=== PATIENT | male | born 2000 | race Caucasian/White ===

== ENCOUNTER 2018-07-16 19:58 | Inpatient (IN) | payer OTHER ==
[~2018-07-16] VITALS: Ht 177.8 cm; Wt 73.3 kg
[2018-07-16] MEDS ORDERED: ONDANSETRON 2MG/ML, 2ML ONE (20:37)
[2018-07-16 20:55] LABS: MEAN CORPUSCULAR HEMOGLOBIN 29.6 pg (27.5-34.5); MEAN CORPUSCULAR VOLUME 87.1 fL (81-97); MEAN PLATELET VOLUME 7.3 fL (7.4-10.4); PLATELET COUNT 274 x10^3/uL (130-400); RED CELL DISTRIBUTION WIDTH 14.5 % (9.4-14.8)
[2018-07-16] MEDS ORDERED: ONDANSETRON 2MG/ML, 2ML IVPush ONE (21:00)
[2018-07-16] MEDS ORDERED: SODIUM CHLORIDE FLUSH 10ML SYR IVF ONE (21:00)
[2018-07-16 21:04] LABS: ALANINE AMINOTRANSFERASE 376 U/L (12-78); ALBUMIN 3.7 g/dL (3.4-5.0); ANION GAP 7 mmol/L (5-15); CALCIUM 8.9 mg/dL (8.5-10.1); CHLORIDE 106 mmol/L (98-107); CREATININE 1.05 mg/dL (0.7-1.3)
[2018-07-16 21:06] LABS: ALKALINE PHOSPHATASE 399 U/L (45-117); TOTAL PROTEIN 8.3 g/dL (6.4-8.2)
--- NOTE | 2018-07-16 21:23 | NUR ---
PT IN SONO AT THIS TIME.
[2018-07-16 21:30] LABS: MD YES
[2018-07-16 21:44] LABS: BAND#(MANUAL) 0.39 x10^3/uL; BANDS%(MANUAL) 3 % (0-7); LYMPH#(MANUAL) 5.55 x10^3/uL (1-6.1); LYMPHS% (MANUAL) 43 % (22-44); MONOS#(MANUAL) 0.26 x10^3/uL (0.3-2.7); MONOS% (MANUAL) 2 % (2-9); REACTIVE LYMPHS # (MANUAL) 5.03 x10^3/uL (0-0); REACTIVE LYMPHS % (MANUAL) 39 % (0-0); SEG#(MANUAL) 1.68 x10^3/uL (1.8-8); SEGS% (MANUAL) 13 % (42-75)
[2018-07-16 21:45] LABS: <PLATELET ESTIMATE> ADEQUATE; <RBC MORPHOLOGY> NORMAL; SMALL PLATELETS 1+
[2018-07-16 21:50] LABS: CULTURE INDICATED? YES
[2018-07-16 21:51] LABS: MICROSCOPIC INDICATED
--- NOTE | 2018-07-16 22:11 | NUR ---
AND RN IN ROOM FOR RECHECK. PT AGREEABLE TO ADMISSION. POC DISCUSSED. PT DECLINES NEED FOR PAIN MEDS AT THIS TIME. PT DENIES FURTHER NEEDS AT THIS TIME.
--- NOTE | 2018-07-16 22:57 | NUR ---
REPORT TO TRISHA RN FOR ROOM [phone].
[2018-07-16] MEDS ORDERED: DOCUSATE 100 MG CAPSULE PO PRN (23:30)
[2018-07-16] MEDS ORDERED: ONDANSETRON ODT 4 MG PO PRN (23:30)
[2018-07-16] MEDS ORDERED: morphine SULFATE 10 MG/ML, 1ML IVPush PRN (23:30)
[2018-07-16] MEDS ORDERED: PROMETHAZINE 25 MG/ML, 1ML IM PRN (23:30)
[2018-07-16 23:42] LABS: FREE T4 (FREE THYROXINE) 1.21 ng/dL (0.76-1.46); THYROID STIMULATING HORMONE 1.17 mIU/L (0.358-3.740)
[2018-07-16] MEDS: SODIUM CHLORIDE 0.9% 1,000 ML IV SCH (23:42)
[2018-07-16 23:49] LABS: HEMOGLOBIN A1C 5.1 % (4.2-6.3)
[2018-07-16 23:51] VITALS: BP 109/68
[2018-07-17 01:25] VITALS: BP 93/56
[2018-07-17] MEDS: SODIUM CHLORIDE 0.9% 1,000 ML IV SCH ×2 (05:20→15:12)
[2018-07-17 05:42] LABS: MEAN CORPUSCULAR HEMOGLOBIN 29.3 pg (27.5-34.5); MEAN CORPUSCULAR HGB CONC 33.7 g/dL (33.2-36.2); MEAN CORPUSCULAR VOLUME 87.1 fL (81-97); MEAN PLATELET VOLUME 7.8 fL (7.4-10.4); PLATELET COUNT 259 x10^3/uL (130-400); RED BLOOD COUNT 4.82 x10^6/uL (4.38-5.82); RED CELL DISTRIBUTION WIDTH 14.4 % (9.4-14.8)
[2018-07-17 05:46] LABS: ALANINE AMINOTRANSFERASE 360 U/L (12-78); ALBUMIN 3.2 g/dL (3.4-5.0); ANION GAP 8 mmol/L (5-15); CALCIUM 8.7 mg/dL (8.5-10.1); CHLORIDE 108 mmol/L (98-107)
[2018-07-17 05:51] LABS: ALKALINE PHOSPHATASE 370 U/L (45-117); CHOL/HDL RATIO 10.5; CHOLESTEROL, TOTAL 158 mg/dL (140-239); CREATININE 1.02 mg/dL (0.7-1.3); HDL CHOL % 9 % (26-37); HDL CHOLESTEROL (DIRECT) 15 mg/dL (40-60); LDL CHOLESTEROL,CALCULATED 93 mg/dL (54-169); LDL/HDL RATIO 6.2 (0.5-3.0); TRIGLYCERIDES 251 mg/dL (50-200); VLDL CHOLESTEROL 50 mg/dL (0-25)
[2018-07-17 06:13] LABS: MD YES
[2018-07-17 06:17] LABS: BAND#(MANUAL) 0.13 x10^3/uL; BANDS%(MANUAL) 1 % (0-7); EOS#(MANUAL) 0.26 x10^3/uL (0.0-0.8); EOS% (MANUAL) 2 % (1-7); LYMPH#(MANUAL) 7.47 x10^3/uL (1-6.1); LYMPHS% (MANUAL) 57 % (22-44); MONOS#(MANUAL) 0.79 x10^3/uL (0.3-2.7); MONOS% (MANUAL) 6 % (2-9); REACTIVE LYMPHS # (MANUAL) 3.01 x10^3/uL (0-0); REACTIVE LYMPHS % (MANUAL) 23 % (0-0); SEG#(MANUAL) 1.44 x10^3/uL (1.8-8); SEGS% (MANUAL) 11 % (42-75)
[2018-07-17 06:18] LABS: <PLATELET ESTIMATE> ADEQUATE; <PLT MORPHOLOGY> NORMAL PLT MORPH; <RBC MORPHOLOGY> NORMAL
[2018-07-17 08:00] VITALS: BP 111/65
[2018-07-17 13:52] VITALS: BP 108/69
[2018-07-17 20:16] VITALS: BP 119/72
[2018-07-17] MEDS: ONDANSETRON 2MG/ML, 2ML IVPush PRN (21:41)
[2018-07-17] MEDS: OXYcodone IR 5MG TABLET PO PRN ×2 (21:41→22:46)
[2018-07-18 01:48] VITALS: BP 97/56
[2018-07-18 07:40] LABS: ALANINE AMINOTRANSFERASE 387 U/L (12-78); ALBUMIN 3.2 g/dL (3.4-5.0); ANION GAP 6 mmol/L (5-15); CALCIUM 8.7 mg/dL (8.5-10.1); CHLORIDE 109 mmol/L (98-107); CREATININE 0.93 mg/dL (0.7-1.3)
[2018-07-18 07:43] LABS: ALKALINE PHOSPHATASE 429 U/L (45-117); BILIRUBIN,TOTAL 3.5 mg/dL (0.2-1.0); TOTAL PROTEIN 7.1 g/dL (6.4-8.2)
[2018-07-18 07:50] VITALS: BP 142/86
[2018-07-18 07:53] VITALS: BP 99/64
[2018-07-18 13:04] VITALS: BP 109/64
[2018-07-18 17:31] LABS: FREE T4 (FREE THYROXINE) 1.22 ng/dL (0.76-1.46); THYROID STIMULATING HORMONE 0.474 mIU/L (0.358-3.740)
[2018-07-18 19:12] VITALS: BP 101/66
[2018-07-18] MEDS: ONDANSETRON 2MG/ML, 2ML IVPush PRN (19:34)
[2018-07-19 01:54] VITALS: BP 97/57
[2018-07-19 07:52] VITALS: BP 107/60
[2018-07-19 11:18] LABS: MD YES; MEAN CORPUSCULAR HEMOGLOBIN 29.5 pg (27.5-34.5); MEAN CORPUSCULAR HGB CONC 34.1 g/dL (33.2-36.2); MEAN CORPUSCULAR VOLUME 86.5 fL (81-97); MEAN PLATELET VOLUME 7.3 fL (7.4-10.4); PLATELET COUNT 300 x10^3/uL (130-400); RED BLOOD COUNT 5.23 x10^6/uL (4.38-5.82); RED CELL DISTRIBUTION WIDTH 14.7 % (9.4-14.8)
[2018-07-19 11:29] LABS: ALANINE AMINOTRANSFERASE 413 U/L (12-78); ALBUMIN 3.4 g/dL (3.4-5.0); ANION GAP 11 mmol/L (5-15); CHLORIDE 103 mmol/L (98-107); CREATININE 1.05 mg/dL (0.7-1.3)
[2018-07-19 11:31] LABS: ALKALINE PHOSPHATASE 546 U/L (45-117); BILIRUBIN,TOTAL 2.9 mg/dL (0.2-1.0); TOTAL PROTEIN 7.8 g/dL (6.4-8.2)
[2018-07-19 11:38] LABS: <PLATELET ESTIMATE> ADEQUATE; <PLT MORPHOLOGY> NORMAL PLT MORPH; <RBC MORPHOLOGY> NORMAL; BAND#(MANUAL) 0.38 x10^3/uL; BANDS%(MANUAL) 3 % (0-7); EOS#(MANUAL) 0.13 x10^3/uL (0.0-0.8); EOS% (MANUAL) 1 % (1-7); LYMPH#(MANUAL) 4.25 x10^3/uL (1-6.1); LYMPHS% (MANUAL) 34 % (22-44); MONOS#(MANUAL) 1.38 x10^3/uL (0.3-2.7); MONOS% (MANUAL) 11 % (2-9); REACTIVE LYMPHS # (MANUAL) 4.25 x10^3/uL (0-0); REACTIVE LYMPHS % (MANUAL) 34 % (0-0); SEG#(MANUAL) 2.13 x10^3/uL (1.8-8); SEGS% (MANUAL) 17 % (42-75)
[2018-07-19 12:26] VITALS: BP 105/63
[2018-07-19] MEDS ORDERED: PROPOFOL 10 MG/ML, 20ML ONE (13:40)
[2018-07-19] MEDS ORDERED: PROMETHAZINE 25 MG/ML, 1ML IV PRN (14:00)
[2018-07-19] MEDS ORDERED: MORPHINE SULFATE 4 MG/ML, 1ML IVPush PRN (14:00)
[2018-07-19] MEDS ORDERED: ONDANSETRON ODT 8 MG PO PRN (14:00)
[2018-07-19] MEDS ORDERED: hydrALAzine 20 MG/ML, 1ML IV PRN (14:00)
[2018-07-19] MEDS ORDERED: MIDAZOLAM 1 MG/ML, 2ML IV PRN (14:00)
[2018-07-19] MEDS ORDERED: ALBUTEROL SULFATE 2.5 MG/3 ML NPPB PRN (14:00)
[2018-07-19] MEDS ORDERED: HALOPERIDOL 5 MG/ML IV PRN (14:00)
[2018-07-19] MEDS ORDERED: FENTANYL PF 100 MCG/2ML IV PRN (14:00)
[2018-07-19] MEDS ORDERED: OXYcodone 5 MG/5 ML ORAL.SOL UDC PO PRN (14:00)
[2018-07-19] MEDS ORDERED: ONDANSETRON 2MG/ML, 2ML IV PRN (14:00)
[2018-07-19] MEDS ORDERED: MEPERIDINE/PF 25MG/0.5ML IVPush PRN (14:00)
[2018-07-19] MEDS ORDERED: HYDROmorphone 2 MG/ML, 1ML IVPush PRN (14:00)
[2018-07-19] MEDS ORDERED: EPHEDRINE 50 MG/ML, 1ML IVPush PRN (14:00)
[2018-07-19] MEDS ORDERED: LABETALOL 5MG/ML, 20ML IV PRN (14:00)
[2018-07-19] MEDS ORDERED: DIAZEPAM 5 MG/ML, 2ML IVPush PRN (14:00)
[2018-07-19] MEDS ORDERED: ONDA4TAB13 PO (20:10)
[2018-07-19 20:18] VITALS: BP 122/75
[2018-07-19 22:31] VITALS: BP 112/71
== END 2018-07-19 22:39 | disposition home or self-care (01) | DRG 445 ==
LOC: ED 22:19 → EDIP 22:25 → 4NOR 23:16
PROVIDERS: ADMIT Internal Medicine; ATTEND Internal Medicine
PROC: 0DB98ZX Excision of Duodenum, Via Natural or Artificial Opening Endoscopic, Diagnostic (ICD-10-PCS; principal; 2018-07-16)
PROC: 0DB68ZX Excision of Stomach, Via Natural or Artificial Opening Endoscopic, Diagnostic (ICD-10-PCS; 2018-07-16)
DX: K80.21 Calculus of gallbladder without cholecystitis with obstruction (principal); J36 Peritonsillar abscess; J35.1 Hypertrophy of tonsils; R74.0 Nonspecific elevation of levels of transaminase and lactic acid dehydrogenase [LDH]; R16.1 Splenomegaly, not elsewhere classified; K59.00 Constipation, unspecified; K29.40 Chronic atrophic gastritis without bleeding; Z90.49 Acquired absence of other specified parts of digestive tract
CPT/HCPCS: 36415; 74181; 76700; 80053; 80061; 80074; 80307; 81001; 82085; 82103; 82390; 82550; 82784; 83036; 83516; 83690; 83735; 84100; 84439; 84443; 84481; 85025; 86038; 86376; 86663; 86664; 86665; 86677; 87081; 87086; 87880; 88305; 96374; G0378; J2405; J2704; J7030